=== PATIENT | male | born 1965 ===

== ENCOUNTER 2021-01-24 18:09 | Emergency (ER) | payer SELFPAY ==
[~2021-01-24] VITALS: Ht 180.3 cm; Wt 95.5 kg
[~2021-01-24 18:09] MED LIST: NORepinephrine 1 mg/ml inj IV ONE; amiodarone 50MG/ML inj IV ONE; enoxaparin 100mg/ml syringe ONE; enoxaparin 30mg/0.3ml syringe ONE; epiNEPHrine 0.1mg/ml 10ml syringe ONE; etomidate 2mg/ml inj. ONE; rocuronium 10mg/ml inj IV ONE; sod chloride 0.9% 10ml flush syringe IV ONE; sodium bicarbonate (8.4%) 1 mEq/ml syringe ONE
--- NOTE | 2021-01-24 18:10 | NUR ---
See code sheet for all charting
[2021-01-24] MEDS ORDERED: midazolam 100mg in NS 100ml 100 ML IV PRN (18:15)
[2021-01-24] MEDS ORDERED: FENTANYL-0.9 % NACL/PF 100 ML IV PRN (18:15)
[2021-01-24 18:23] VITALS: BP 0/0
[2021-01-24] MEDS ORDERED: alteplase 100MG inj. 100 ML IV ONE (18:25)
[2021-01-24] MEDS ORDERED: epiNEPHrine 5 MG in NS 250ml IV.SOLN IV SCH (18:35)
[2021-01-24] MEDS ORDERED: NORepinephrine inj. 32 MG in normal saline 250ml IV soln 218 ML IV SCH (18:45)
[2021-01-24 19:03] LABS: BASOPHILS # (AUTO) 0.2 X10'3 (0-0.2); EOSINOPHILS # (AUTO) 0.1 X10'3 (0-0.9); RED CELL DISTRIBUTION WIDTH 14.2 % (11.5-14.5)
[2021-01-24 19:05] LABS: BASOPHILS % (AUTO) 0.7 % (0-1); EOSINOPHILS % (AUTO) 0.4 % (0-6); HEMATOCRIT 41.4 % (42.0-52.0); HEMOGLOBIN 13.4 g/dl (14.0-17.9); LYMPHOCYTES # (AUTO) 7.6 X10'3 (1.1-4.8); LYMPHOCYTES % (AUTO) 30.5 % (21-51); MEAN CORPUSCULAR HEMOGLOBIN 30.8 PG (27.0-31.0); MEAN CORPUSCULAR HGB CONC 32.3 g/dL (33.0-36.5); MEAN CORPUSCULAR VOLUME 95.3 FL (78-98); MEAN PLATELET VOLUME 8.3 FL (7.4-10.4); MONOCYTES # (AUTO) 1.3 X10'3 (0-0.9); MONOCYTES % (AUTO) 5.3 % (2-12); NEUTROPHILS # (AUTO) 15.7 X10'3 (1.8-7.7); NEUTROPHILS % (AUTO) 63.1 % (42-75); PLATELET COUNT 423 X10'3 (140-440); RED BLOOD COUNT 4.34 X10'6 (4.70-6.10); WHITE BLOOD COUNT 24.9 X10'3 (4.5-11.0)
[2021-01-24 19:12] LABS: D-DIMER > 35.20 MG/L FEU (0-0.50)
[2021-01-24 19:15] LABS: ALANINE AMINOTRANSFERASE 330 U/L (12-78); ALBUMIN 2.1 G/DL (3.4-5.0); ALBUMIN/GLOBULIN RATIO 0.4 (1.1-1.5); ALKALINE PHOSPHATASE 108 IU/L (46-116); ANION GAP 32 (8-16); ASPARTATE AMINO TRANSFERASE 296 U/L (10-37); BILIRUBIN,TOTAL 0.5 MG/DL (0.1-1.0); BLOOD UREA NITROGEN 51 MG/DL (7-18); BUN/CREATININE RATIO 21.7 (5.4-32.0); CALCIUM 9.6 MG/DL (8.5-10.1); CHLORIDE 98 MMOL/L (99-107); CREATININE 2.35 MG/DL (0.60-1.10); SODIUM 146 MMOL/L (135-145); TOTAL CARBON DIOXIDE 16.2 MMOL/L (24-32); TOTAL PROTEIN 6.8 G/DL (6.4-8.2); eGFR 29 ML/MIN
[2021-01-24 19:19] LABS: GLUCOSE 331 MG/DL (70-104); POTASSIUM 2.4 MMOL/L (3.5-5.1)
--- NOTE | 2021-01-24 19:20 | NUR ---
K LEVEL 2.4; AWARE
--- NOTE | 2021-01-24 21:20 | NUR ---
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
--- NOTE | 2021-01-24 21:40 | NUR ---
CONTACTED [employer]
[2021-01-24 22:09] LABS: ANISOCYTOSIS 1+; NUCLEATED RED BLOOD CELLS 3 /100WBC (0-0); PLATELET ESTIMATE INCREASED; TOTAL CELLS COUNTED 100
[2021-01-24 22:10] LABS: BURR CELLS 1+; LARGE PLATELETS FEW; POLYCHROMASIA FEW; SMUDGE CELLS 1+; TOXIC GRANULATION 1+
[2021-01-24 22:11] LABS: SPHEROCYTES 1+
[2021-01-24 22:12] LABS: HYPERSEGMENTED NEUTROPHILS FEW
== END 2021-01-25 07:18 ==
LOC: ER 18:09 → EDBD 18:09 → ER 01-25 07:18
DX: I46.9 Cardiac arrest, cause unspecified (principal); R53.1 Weakness; R20.0 Anesthesia of skin
CPT/HCPCS: 31500; 36415; 36556; 80053; 82948; 83880; 85007; 85025; 85379; 93005; 96365; 96366; 99285; J0171; J1650; J2997; 94760